=== PATIENT | male | born 1965 | race Caucasian/White ===

== ENCOUNTER 2019-04-28 18:17 | Inpatient (IN) ==
[2019-04-28] MEDS ORDERED: Sodium Chloride 0.9% 1,000 ML PRIMARY IV ONE (18:32)
[2019-04-28] MEDS ORDERED: ASPIRIN 81 MG (BABY) CHEWABLE TABLET PO ONE (18:32)
[2019-04-28] MEDS ORDERED: DILTIAZEM 5 MG/ML - 5 ML IV ONE (18:33)
[2019-04-28 18:42] LABS: BASOPHILS # (AUTO) 0.03 10*3/UL; BASOPHILS % (AUTO) 0.4 % (0-1); EOSINOPHILS # (AUTO) 0.09 10*3/UL; EOSINOPHILS % (AUTO) 1.2 % (0-8); Hematocrit [HCT] 50.3 % (37.0-47.0); Hemoglobin [HGB] 17.5 g/dL (12.0-16.0); LYMPHOCYTES # (AUTO) 1.52 10*3/uL; MEAN CORPUSCULAR HGB CONC 34.8 g/dL (33-37); MEAN CORPUSCULAR VOLUME 87.2 FL (81-99); MEAN PLATELET VOLUME 9.4 FL (7.4-12.2); MONOCYTES # (AUTO) 0.71 10*3/UL (0.3-0.8); MONOCYTES % (AUTO) 9.6 % (5-15); NEUTROPHILS # (AUTO) 5.05 10*3/UL; NEUTROPHILS % (AUTO) 68.2 % (50-80); RED BLOOD COUNT 5.77 10^6/uL (4.20-5.40)
[2019-04-28 18:43] LABS: PLATELET MORPHOLOGY COMMENT NORMAL MORPHOLOGY (NORM); RBC MORPHOLOGY COMMENT NORMAL MORPHOLOGY (NORM); WBC MORPHOLOGY COMMENT NORMAL MORPHOLOGY (NORM)
[2019-04-28 18:54] LABS: BLOOD UREA NITROGEN 19 mg/dL (7-22); BUN/CREATININE RATIO 23.75 (6-20); SERUM ALBUMIN 4.3 g/dL (3.5-4.8)
[2019-04-28] MEDS ORDERED: Diltiazem Drip 125 MG in Sodium Chloride 0.9% 100 ML IV ONE ×2 (20:07→21:12)
[2019-04-28] MEDS ORDERED: LIDOCAINE W/ SODIUM BICARB 0.5 ML SYR SUBD PRN (22:01)
[2019-04-28] MEDS ORDERED: Sodium Chloride 0.9% 1,000 ML PRIMARY IV SCH (22:15)
[2019-04-28] MEDS: Apixaban Tab 2.5 MG TABLET PO SCH (22:31)
[2019-04-29 04:20] LABS: BASOPHILS # (AUTO) 0.03 10*3/UL; BASOPHILS % (AUTO) 0.5 % (0-1); EOSINOPHILS # (AUTO) 0.14 10*3/UL; EOSINOPHILS % (AUTO) 2.5 % (0-8); Hematocrit [HCT] 46.2 % (42.0-52.0); Hemoglobin [HGB] 16.1 g/dL (14.0-18.0); LYMPHOCYTES # (AUTO) 1.56 10*3/uL; MEAN CORPUSCULAR HGB CONC 34.8 g/dL (33-37); MEAN CORPUSCULAR VOLUME 87.7 FL (80-90); MEAN PLATELET VOLUME 9.3 FL (7.4-12.2); MONOCYTES # (AUTO) 0.57 10*3/UL (0.3-0.8); MONOCYTES % (AUTO) 10.2 % (5-15); NEUTROPHILS # (AUTO) 3.27 10*3/UL; NEUTROPHILS % (AUTO) 58.4 % (50-80); PLATELET MORPHOLOGY COMMENT NORMAL MORPHOLOGY (NORM); RBC MORPHOLOGY COMMENT NORMAL MORPHOLOGY (NORM); RED BLOOD COUNT 5.27 10^6/uL (4.70-6.10); WBC MORPHOLOGY COMMENT NORMAL MORPHOLOGY (NORM)
[2019-04-29 04:30] LABS: BLOOD UREA NITROGEN 19 mg/dL (7-22); BUN/CREATININE RATIO 27.14 (6-20); SERUM ALBUMIN 3.7 g/dL (3.5-4.8)
[2019-04-29] MEDS ORDERED: POTASSIUM CHLORIDE 20 MEQ TAB PO SCH ×3 (07:15→17:00)
[2019-04-29 07:39] VITALS: TEMP 97.6
[2019-04-29] MEDS ORDERED: DILTIAZEM HCL CD 120 MG CAP PO SCH (09:00)
[2019-04-29] MEDS: Apixaban Tab 2.5 MG TABLET PO SCH (09:45)
[2019-04-29] MEDS ORDERED: Sodium Chloride 0.9% 1,000 ML PRIMARY IV SCH (11:33)
[2019-04-29] MEDS ORDERED: LIDOCAINE W/ SODIUM BICARB 0.5 ML SYR SUBD PRN (11:33)
[2019-04-29] MEDS ORDERED: POTASSIUM CHLORIDE 20 MEQ TAB PO ONE (11:33)
[2019-04-29 14:23] LABS: BLOOD UREA NITROGEN 18 mg/dL (7-22); BUN/CREATININE RATIO 25.71 (6-20)
[2019-04-29] MEDS ORDERED: Apixaban 5 MG TABLET PO ONE (15:26)
[2019-04-29 16:13] VITALS: BP 113/59; RESP 20; O2SAT 99
[2019-04-29] MEDS ORDERED: Apixaban Tab 2.5 MG TABLET PO SCH (21:00)
[2019-04-30] MEDS ORDERED: DILTIAZEM HCL CD 120 MG CAP PO SCH (09:00)
== END 2019-04-29 15:56 | disposition home or self-care (01) | DRG 310 ==
LOC: ER 18:17 → ICU 21:12 → EDSEX 21:12 → ICU 21:50 → MED/SURG 04-29 11:28
PROVIDERS: ADMIT Internal Medicine; ATTEND Family Medicine